=== PATIENT | female | born 1930 | race Caucasian/White ===

== ENCOUNTER 2017-03-08 11:13 | Day surgery (SDC) | payer OTHER ==
[2017-03-07 09:13] VITALS: BMI 23.7
[~2017-03-08] VITALS: Ht 152.4 cm; Wt 54.4 kg
[~2017-03-08 11:13] MED LIST: CEFAZOLIN 1 GM INJ ONE; CEFAZOLIN 2 GM/50 ML (PMX) 50 ML IVPB ONE; SOD CHLORIDE 0.9% 1,000 ML IV SCH
[2017-03-08] MEDS ORDERED: GLIM1TAB2 PO (11:40)
[2017-03-08] MEDS ORDERED: SIMV10TA PO (11:41)
[2017-03-08] MEDS ORDERED: BACL10TA PO (11:42)
[2017-03-08] MEDS ORDERED: LEVO50TA71 PO (11:42)
[2017-03-08] MEDS ORDERED: WARF2.5T PO (11:45)
[2017-03-08] MEDS ORDERED: WARF5TAB72 PO (11:45)
[2017-03-08] MEDS ORDERED: HYDR-3672 PO (11:47)
[2017-03-08] MEDS ORDERED: LISI40TA9 PO (11:47)
[2017-03-08] MEDS ORDERED: DILT240C62 PO (11:49)
[2017-03-08] MEDS ORDERED: DILT120C62 PO (11:49)
[2017-03-08] MEDS ORDERED: BUPIVACAINE 0.25% (MPF) 30 ML INJ ONE (11:52)
[2017-03-08 12:19] VITALS: Ht 152.4 cm; Wt 54.4 kg
[2017-03-08 12:23] VITALS: BP 171/79; PULSE 82; RESP 20
[2017-03-08] MEDS ORDERED: BUPIVACAINE 0.5% 30 ML VIAL INJ ONE (12:30)
[2017-03-08] MEDS ORDERED: LIDOCAINE 2% (MDV) 20 ML INJ INJ ONE (12:30)
[2017-03-08] MEDS ORDERED: BUPIVACAINE 0.5% (SDV) 30 ML INJ ONE (12:39)
[2017-03-08] MEDS ORDERED: LIDOCAINE 2% (MDV) 20 ML INJ ONE (12:39)
[2017-03-08] MEDS ORDERED: MIDAZOLAM 1 MG/ML 2 ML INJ ONE (12:40)
[2017-03-08] MEDS ORDERED: NEOSTIGMINE 3 MG/3 ML SYRINGE ONE (12:40)
[2017-03-08] MEDS ORDERED: LIDOCAINE 2% (SDV) 5 ML INJ ONE (12:40)
[2017-03-08] MEDS ORDERED: ROCURONIUM 50 MG INJ ONE (12:40)
[2017-03-08] MEDS ORDERED: PROPOFOL 20 ML ONE (12:40)
[2017-03-08] MEDS ORDERED: GLYCOPYRROLATE 0.4 MG INJ ONE (12:40)
[2017-03-08] MEDS ORDERED: ONDANSETRON 4 MG INJ ONE (12:41)
[2017-03-08] MEDS ORDERED: FENTAnyl 50 MCG/ML VIAL ONE (12:41)
--- NOTE | 2017-03-08 13:14 | OPR ---
Date/Time of Note Date/Time of Note DATE: 03/08/17 TIME: 13:13 Operative Report Procedure Date: Mar 08, 2017 Preoperative Diagnosis back mass Postoperative Diagnosis same Operation Performed back mass excision 6 cm incision 6 x 2 cm mass localized adjacent tissue transfer with the use of skin flaps 12 sq cm defect Surgeon: [place]i LOPEZ Specimens back mass [place] LOPEZ Mar 08, 2017 13:14
[2017-03-08 13:18] VITALS: BP 135/66; PULSE 89; RESP 14
[2017-03-08 13:23] VITALS: BP 152/69; PULSE 68; RESP 14
[2017-03-08 13:28] VITALS: BP 149/71; PULSE 64; RESP 14
[2017-03-08] MEDS ORDERED: ACETAMINOPHEN/CODEINE #3 TAB PO ONE (13:30)
[2017-03-08 13:33] VITALS: BP 150/71; PULSE 64; RESP 14
[2017-03-08 13:45] VITALS: BP 140/64; PULSE 98; RESP 16
--- NOTE | 2017-03-08 14:00 | OPR ---
DATE OF OPERATION: 03/08/2017 to 31311/08/2016 INDICATION: This is an 86-year-old female with a back mass. She requests surgical excision. Risks, alternatives, benefits, and personnel were discussed with the patient. Patient expresses understanding and consents to the operation. PREOPERATIVE DIAGNOSIS: Back mass. POSTOPERATIVE DIAGNOSIS: Back mass. OPERATION PERFORMED: 1. Back mass excision with 6 cm size incision and 6 x 2 cm size mass. 2. Localized adjacent tissue transfer with fusion of skin flaps with 12 square cm defect. SURGEON: Yony Parnell MD SPECIMEN: Back mass. COMPLICATIONS: None. ANESTHESIA: MAC. DESCRIPTION OF PROCEDURE: The patient was taken to the OR and prepped and draped in the usual sterile fashion. Surgical timeout was performed. IV antibiotics were given. An elliptical incision is made with a 15 blade over the mass after local anesthesia was infiltrated. Dissection cautery was carried down to the mass and circumferentially excised. There was good hemostasis; however, due to the large tissue defect, localized adjacent suture transfer with the use of skin flaps was performed. Multilayer closure with interrupted 3-0 Vicryl and skin art. Dry dressings were applied. Dictated By: YONY CHEN/ZANDRA Conf#: [id number] DID#: [id number]
== END 2017-03-08 14:26 | disposition home or self-care (01) ==
LOC: SDS 11:13
PROVIDERS: ATTEND Surgery
DX: L72.0 Epidermal cyst (principal); E11.9 Type 2 diabetes mellitus without complications; I10 Essential (primary) hypertension; E78.5 Hyperlipidemia, unspecified; E03.9 Hypothyroidism, unspecified
CPT/HCPCS: 14000; 82962; 88307; J0690; J2250; J2405; J3010; Z7512; Z7610; J2710